=== PATIENT | female | born 1990 | race Caucasian/White ===

== ENCOUNTER 2018-05-19 20:02 | Emergency (ER) | payer MEDICAID ==
[2018-05-19 20:21] VITALS: BP 133/88
[2018-05-19 21:09] LABS: BASOPHILS # (AUTO) 0.03 x10^3/uL (0-0.1); BASOPHILS % (AUTO) 0 % (0-1); EOSINOPHILS # (AUTO) 0.08 x10^3/uL (0-0.4); EOSINOPHILS % (AUTO) 1 % (1-7); LYMPHOCYTES # (AUTO) 2.36 x10^3/uL (1-3.4); LYMPHOCYTES % (AUTO) 35 % (22-44); MD NO; MEAN CORPUSCULAR HEMOGLOBIN 32.1 pg (27.0-34.8); MEAN CORPUSCULAR HGB CONC 34.2 g/dL (32.4-35.8); MEAN CORPUSCULAR VOLUME 93.8 fL (80-100); MONOCYTES # (AUTO) 0.54 x10^3/uL (0.2-0.8); MONOCYTES % (AUTO) 8 % (2-9); NEUTROPHILS # (AUTO) 3.76 x10^3/uL (1.8-6.8); NEUTROPHILS % (AUTO) 56 % (42-75); PLATELET COUNT 175 x10^3/uL (130-400); RED BLOOD COUNT 4.28 x10^6/uL (3.82-5.3); RED CELL DISTRIBUTION WIDTH 13.1 % (9.6-15.2)
[2018-05-19 21:23] LABS: ALANINE AMINOTRANSFERASE 22 U/L (12-78); ALBUMIN 4.2 g/dL (3.4-5.0); ANION GAP 7 mmol/L (5-15); CALCIUM 8.9 mg/dL (8.5-10.1); CHLORIDE 112 mmol/L (98-107); CREATININE 0.59 mg/dL (0.55-1.02)
[2018-05-19 21:27] LABS: ALKALINE PHOSPHATASE 68 U/L (45-117); BILIRUBIN,TOTAL 0.5 mg/dL (0.2-1.0); TOTAL PROTEIN 6.8 g/dL (6.4-8.2)
[2018-05-19 21:28] LABS: INTERNATIONAL NORMALIZED RATIO 1.04 (0.93-1.1)
--- NOTE | 2018-05-19 21:35 | NUR ---
called pt to room from lobby
--- NOTE | 2018-05-19 21:46 | NUR ---
PT TO ED FOR COUGHING UP BRB STARTING AT 1600. COUGHING STARTED AFTER PT FELL IN BATHROOM. +LOC, UNSURE WHERE PT HIT THE GROUND. PARTNER FOUND PT ON FLOOR APROX 5 MINUTES AFTER FALL. PT ALSO STATES BLACK COFFEE GROUND STOOLS. PT STATES RIGHT LOWER DENTAL INFECTION . ABX SINCE 05/14/2018. CONNECTED TO MONITORS. ALL VSS. CALL LIGHT WITHIN REACH. AWAITIN GMD ASSESSMENT.
== END 2018-05-19 22:32 | disposition home or self-care (01) ==
LOC: ED 22:05
DX: K29.01 Acute gastritis with bleeding (principal); R04.2 Hemoptysis; I10 Essential (primary) hypertension; Z88.5 Allergy status to narcotic agent
CPT/HCPCS: 36415; 71046; 80053; 83690; 84703; 85025; 85610; 85730; 99284